=== PATIENT | male | born 1935 | race Hispanic/Latino ===

== ENCOUNTER 2017-03-20 03:25 | Emergency (ER) | payer MEDICARE, OTHER ==
[2017-03-20 03:50] VITALS: BP 145/85; PULSE 116; RESP 18; TEMP 98.2; O2SAT 97
--- NOTE | 2017-03-20 04:38 | ED PDOC ---
HPI: Psych/Substance Abuse Time Seen by Provider: 03/20/17 03:44 Chief Complaint (Nursing): Psychiatric Evaluation Chief Complaint (Provider): Psychiatric Evaluation ED Caveat: Altered Mental Status History Per: Patient History/Exam Limitations: clinical condition Onset/Duration Of Symptoms: Days Current Symptoms Are (Timing): Still Present Associated Symptoms: Anger Additional History Per: Family (Daughter) Additional Complaint(s): Bertram Taylor is an 81 y/o male with a past medical history of dementia, who was brought to the ED by his daughter. Daughter states that patient had exhibited aggressive behavior and angry mood prior to arrival, which has now resolved. Patient is a poor historian. PMD: Provider TONG Past Medical History Reviewed: Historical Data, Nursing Documentation, Vital Signs Vital Signs: Last Vital Signs Temp 98.2 F 03/20/17 03:47 Pulse 116 H 03/20/17 03:47 Resp 18 03/20/17 03:47 BP 145/85 03/20/17 03:47 Pulse Ox 97 03/20/17 03:47 - Medical History PMH: Dementia, HTN - Surgical History Surgical History: No Surg Hx - Family History Family History: States: Unknown Family Hx - Home Medications Home Medications: Ambulatory Orders Medication Instructions Recorded Benazepril HCl [Benazepril HCl] 40 mg PO DAILY 04/11/16 Escitalopram [Lexapro] 10 mg PO DAILY 04/11/16 Meloxicam [Meloxicam] 1 tab PO DAILY 04/11/16 Psyllium Husk [Metamucil] 1 packet PO DAILY 04/11/16 amLODIPine [Norvasc] 10 mg PO DAILY 04/11/16 QUEtiapine [SEROquel] 12.5 mg PO HS 03/20/17 - Allergies Allergies/Adverse Reactions: Allergies Allergy/AdvReac Type Severity Reaction Status Date / Time No Known Allergies Allergy Verified 03/20/17 03:50 Review of Systems ROS Statement: Except As Marked, All Systems Reviewed And Found Negative Neurological: Positive for: Altered Mental Status Physical Exam - Reviewed Nursing Documentation Reviewed: Yes Vital Signs Reviewed: Yes - Physical Exam Appears: Positive for: Non-toxic, No Acute Distress Head Exam: Positive for: ATRAUMATIC, NORMAL INSPECTION, NORMOCEPHALIC Skin: Positive for: Normal Color, Warm, Dry Eye Exam: Positive for: EOMI, Normal appearance, PERRL Neck: Positive for: Normal, Painless ROM, Supple Cardiovascular/Chest: Positive for: Regular Rate, Rhythm. Negative for: Murmur Respiratory: Positive for: Normal Breath Sounds. Negative for: Respiratory Distress Pulses-Radial (L): 2+ Pulses-Radial (R): 2+ Gastrointestinal/Abdominal: Positive for: Normal Exam, Soft. Negative for: Tenderness Back: Positive for: Normal Inspection. Negative for: L CVA Tenderness, R CVA Tenderness, Vertebral Tenderness Extremity: Positive for: Normal ROM. Negative for: Pedal Edema, Calf Tenderness , Deformity Neurologic/Psych: Positive for: Alert (and awake) - ECG O2 Sat by Pulse Oximetry: 97 (RA) Pulse Ox Interpretation: Normal Medical Decision Making Medical Decision Making: Time: 3:50 Initial Plan: --Crisis made aware of patient Time: 4:53 Patient evaluated by crisis. Discussed case with platform worker. Per Dr. Barksdale, patient will be discharged home. Clinical Impression: Dementia Scribe Attestation: Documented by Yvrose Mcdermott, acting as a scribe for Aleks Bender MD Provider Scribe Attestation: All medical record entries made by the Scribe were at my direction and personally dictated by me. I have reviewed the chart and agree that the record accurately reflects my personal performance of the history, physical exam, medical decision making, and the department course for this patient. I have also personally directed, reviewed, and agree with the discharge instructions and disposition. Disposition - Clinical Impression Clinical Impression: Dementia - Patient ED Disposition Is Patient to be Admitted: No Doctor Will See Patient In The: Office Counseled Patient/Family Regarding: Studies Performed, Diagnosis, Need For Followup - Disposition Referrals: [facility] [Outside] Disposition: Routine/Home Disposition Time: 04:53 Condition: GOOD Instructions: Dementia (ED)
== END 2017-03-20 05:01 | disposition home or self-care (01) ==
LOC: H.ER 03:25
DX: F03.90 Unspecified dementia, unspecified severity, without behavioral disturbance, psychotic disturbance, mood disturbance, and anxiety (principal); I10 Essential (primary) hypertension